=== PATIENT | male | born 1965 | race Caucasian/White ===

== ENCOUNTER 2016-10-31 02:18 | Emergency (ER) | payer MEDICAID ==
[2016-10-31 02:24] VITALS: BP 149/90; PULSE 110; TEMP 98.6; O2SAT 97; BMI 22.6
[2016-10-31 02:30] VITALS: RESP 18
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
[2016-10-31] MEDS ORDERED: TraMADol/Apap 37.5/325 mg Tab PO STA (04:33)
== END 2016-10-31 04:45 | disposition home or self-care (01) ==
LOC: ED 02:18
DX: S02.2XXA Fracture of nasal bones, initial encounter for closed fracture (principal); S22.32XA Fracture of one rib, left side, initial encounter for closed fracture; S09.93XA Unspecified injury of face, initial encounter; Y04.0XXA Assault by unarmed brawl or fight, initial encounter; Y92.818 Other transport vehicle as the place of occurrence of the external cause; Y99.0 Civilian activity done for income or pay; M54.9 Dorsalgia, unspecified